=== PATIENT | female | born 1965 | race Two or more races ===

== ENCOUNTER 2020-07-09 13:51 | Emergency (ER) | payer SELFPAY ==
[~2020-07-09] VITALS: Ht 162.6 cm; Wt 62.0 kg
--- NOTE | 2020-07-09 14:05 | NUR ---
FOZIA GALVAN, NOTIFIED OF CONCERN FOR R/O HYPERTENSIVE CRISIS VS HEAD BLEED PRESENTATION.
[2020-07-09] MEDS ORDERED: SODIUM CHLORIDE FLUSH 10ML SYR IVF ONE (14:30)
--- NOTE | 2020-07-09 14:54 | NUR ---
ECG OBTAINED. LAB AT BEDSIDE. CT WAITING FOR HEAD CT ONCE LAB IS COMPLETE
--- NOTE | 2020-07-09 15:10 | NUR ---
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 ERP DEFERRING NO CHANGE IN NEURO EXAM
[2020-07-09 15:13] LABS: BASOPHILS % (AUTO) 0 % (0-1); EOSINOPHILS % (AUTO) 0 % (1-7); LYMPHOCYTES % (AUTO) 24 % (22-44); MD NO; MEAN CORPUSCULAR HGB CONC 34.6 g/dL (32.4-35.8); MEAN PLATELET VOLUME 7.4 fL (7.4-10.4); MONOCYTES % (AUTO) 6 % (2-9); NEUTROPHILS % (AUTO) 70 % (42-75); PLATELET COUNT 302 x10^3/uL (130-400); RED BLOOD COUNT 4.45 x10^6/uL (3.82-5.3); RED CELL DISTRIBUTION WIDTH 13.6 % (9.6-15.2)
[2020-07-09 15:24] LABS: ALBUMIN 3.8 g/dL (3.4-5.0); ANION GAP 10 mmol/L (5-15); CHLORIDE 105 mmol/L (98-107)
[2020-07-09 15:30] LABS: ALANINE AMINOTRANSFERASE 18 U/L (12-78); ALKALINE PHOSPHATASE 134 U/L (45-117); BILIRUBIN,TOTAL 0.2 mg/dL (0.2-1.0); CREATININE 0.99 mg/dL (0.55-1.02); TOTAL PROTEIN 7.6 g/dL (6.4-8.2); TROPONIN I < 0.015 ng/mL (0.000-0.045)
[2020-07-09 16:15] VITALS: BP 162/79
== END 2020-07-09 16:17 | disposition home or self-care (01) ==
LOC: ED 16:00
DX: R42 Dizziness and giddiness (principal); G89.29 Other chronic pain; R51.9 Headache, unspecified; I10 Essential (primary) hypertension; R94.31 Abnormal electrocardiogram [ECG] [EKG]
CPT/HCPCS: 70450; 71045; 80053; 80320; 82962; 84484; 85025; 93005; 99285; G0480